=== PATIENT | male | born 1980 | race Caucasian/White ===

== ENCOUNTER 2018-12-29 10:33 | Outpatient (CLI) | payer BC | END 2018-12-29 23:59 | disposition home or self-care (01) | LOC: CVU 10:33 | PROVIDERS: ATTEND Internal Medicine Cardiovascular Disease | DX: R94.31 Abnormal electrocardiogram [ECG] [EKG] (principal); I10 Essential (primary) hypertension | CPT/HCPCS: C8929; Q9957 ==

== ENCOUNTER → 2019-11-27 | Outpatient (CLI) | payer BC | END | disposition home or self-care (01) | LOC: RAD 15:12 | PROVIDERS: ATTEND Orthopaedic Surgery | DX: M25.462 Effusion, left knee (principal); M79.89 Other specified soft tissue disorders; M23.92 Unspecified internal derangement of left knee ==